=== PATIENT | female | born 1970 | race Two or more races ===

== ENCOUNTER → 2024-06-15 | Outpatient (CLI) | payer MEDICAID, SELFPAY ==
--- NOTE | 2024-06-15 12:30 | XR_ITS ---
Examination: Breast ultrasound complete, bilateral Date and time of exam: June 15, 2024 Technique: Real-time grayscale ultrasonographic imaging bilateral breasts, including all 4 quadrants as well as nipple retroareolar and axillary regions. Indications: Right breast sonogram January 10, 2024 retroareolar oval mass with breast biopsy marker 16 x 9 x 13 mm Findings: Sonographic images right breast 12:00 circumscribed nodule 6 x 6 mm 12:00 circumscribed nodule 3 x 4 mm 11:00 circumscribed nodule 5 x 6 mm Sonographic images left breast Retroareolar nodule irregular margins 18 x 17 x 16 mm with breast biopsy marker Impression: Mild interval enlargement of the left breast retroareolar nodule, 3 month follow-up left breast sonography strongly recommended to document stability of this nodule
--- NOTE | 2024-06-15 13:30 | XR_ITS ---
Examination: Diagnostic digital mammography, bilateral Computer aided detection 3-D breast Tomosynthesis, bilateral Date and time of exam: 06/15/2024, 1:14 PM Comparisons: January 2013 through January 2024 Indications:Further evaluation of focal asymmetry seen on prior screening exam. Technique: Nonmagnified MLO, CC views of the breasts to been obtained, reconstructed from 3-D Tomosynthesis images. R2 computer aided detection program utilized for evaluation of suspicious masses and/or abnormal calcifications. 3-D Tomosynthesis images obtained. Findings: The breasts are heterogeneously dense, which may obscure small masses. The previously described abnormalities do not persist on spot compression views and represents superimposition of normal fibroglandular tissue. Stable benign-appearing left breast mass with postbiopsy marker clip. BI-RADS category 2: Benign findings Recommend 1 year follow-up mammogram
== END | disposition home or self-care (01) ==
PROVIDERS: PCP Nurse Practitioner Family; Referring Provider Nurse Practitioner Family; Visit Provider Nurse Practitioner Family
DX: R92.323 Mammographic fibroglandular density, bilateral breasts (principal); N62 Hypertrophy of breast
CPT/HCPCS: 76641; 77062; 77066; G0279

== ENCOUNTER → 2024-09-14 | Outpatient (CLI) | payer OTHER, SELFPAY ==
--- NOTE | 2024-09-14 13:00 | XR_ITS ---
Examination: Breast ultrasound, unilateral, left complete Date and time of exam: September 14, 2024 1257 hours INDICATIONS: Breast sonography June 15, 2024 left breast retroareolar nodule 18 x 17 x 16 mm with breast biopsy marker Technique: Real-time schwartz scale ultrasonographic imaging performed left breast including all 4 quadrants as well as nipple retroareolar and axillary region. Findings: Retroareolar nodule 19 x 9 x 13 mm, lobular margins, breast biopsy marker IMPRESSION: BI-RADS Category 3: Probably benign findings Retroareolar nodule 19 x 9 x 13 mm compared with 18 x 17 x 16 mm on the prior ultrasound study Recommend continued 6 month follow-up left breast sonography to document stability of this nodule
== END | disposition home or self-care (01) ==
LOC: CDIM 12:26
PROVIDERS: PCP Nurse Practitioner Family; Referring Provider Nurse Practitioner Family; Visit Provider Nurse Practitioner Family
DX: N63.42 Unspecified lump in left breast, subareolar (principal)
CPT/HCPCS: 76641